=== PATIENT | female | born 1975 | race African-American/Black ===

== ENCOUNTER 2018-01-01 16:22 | Emergency (ER) | payer MEDICAID ==
[~2018-01-01] VITALS: Ht 172.7 cm; Wt 70.8 kg
[2018-01-01 16:27] VITALS: BP 94/73
[2018-01-01] MEDS ORDERED: cefTRIAXone SOD 1,000 MG VL IM ONE (18:00)
== END 2018-01-01 18:05 | disposition home or self-care (01) ==
LOC: ER 16:28
DX: K04.7 Periapical abscess without sinus (principal); Z76.0 Encounter for issue of repeat prescription
CPT/HCPCS: 96372; 99283; J0696

== ENCOUNTER → 2022-05-12 | Emergency (ER) | payer MEDICAID | END | disposition left against medical advice (07) | LOC: ER 20:32 | DX: S40.861A Insect bite (nonvenomous) of right upper arm, initial encounter (principal); Z53.21 Procedure and treatment not carried out due to patient leaving prior to being seen by health care provider; W57.XXXA Bitten or stung by nonvenomous insect and other nonvenomous arthropods, initial encounter; Y93.89 Activity, other specified; Y92.89 Other specified places as the place of occurrence of the external cause; Y99.8 Other external cause status ==

== ENCOUNTER 2024-01-08 11:24 | Emergency (ER) | payer MEDICAID ==
[~2024-01-08] VITALS: Ht 172.7 cm; Wt 83.1 kg
[2024-01-08 12:13] VITALS: BP 145/81; PULSE 67; RESP 18; TEMP 99.5; O2SAT 99
[2024-01-08] MEDS: KETOROLAC TROMETH 60MG/2ML VIAL IM ONE (12:53)
[2024-01-08] MEDS ORDERED: METH-1182 PO (12:59)
[2024-01-08] MEDS ORDERED: IBUP-1456 PO (12:59)
== END 2024-01-08 13:13 | disposition home or self-care (01) ==
LOC: ER 11:25
DX: S39.012A Strain of muscle, fascia and tendon of lower back, initial encounter (principal); S63.91XA Sprain of unspecified part of right wrist and hand, initial encounter; X50.0XXA Overexertion from strenuous movement or load, initial encounter; Y93.89 Activity, other specified; Y92.89 Other specified places as the place of occurrence of the external cause; Y99.8 Other external cause status
CPT/HCPCS: 29125; 72100; 73130; 96372; 99284; J1885